=== PATIENT | female | born 1970 | race Caucasian/White ===

== ENCOUNTER → 2020-12-25 15:50 | Outpatient (CLI) | payer OTHER, SELFPAY ==
--- NOTE | 2020-12-25 | EMB_PTH ---
PATIENT: AWA JACOBO LOC: [facility] U#:[id number] AGE/SX: 54/F ROOM: RE12/25/[address]: Dr. Kobe Archibald MD : 1970 BED: DIS: SPEC #: [id number] RECD: 12/25/20 15:00 STATUS: RAMAKRISHNA CHELSIE #: [id number] ALICIA: 12/25/20 00:[address]: Kobe Archibald DEPT: SURGICAL PATHOLOGY RECD BY: Roman Hernandez Tissues: Endometrium, NOS Procedures: Surgery Specimen Level IV HEADER OPERATION: Endometrial biopsy PRE-OP DIAGNOSIS: Thickened endometrial lining R93.8 TISSUE SUBMITTED: Endometrial biopsy MICROSCOPIC DIAGNOSIS Endometrium, biopsy: Transitional endometrium with minimal disorder and focal glandular breakdown. AM:guadalupe 12/27/2020 MICROSCOPIC DESCRIPTION Slides are reviewed. GROSS DESCRIPTION Received in fixative is one container labeled with the patient's name and designated EMB. The specimen consists of multiple fragments of hemorrhagic soft tissue that in aggregate measure 1.5 x 1 x 0.2 cm. The specimen is totally submitted in one cassette. / SJ:rg 12/26/20 TC:5 CPT: 66159
[2020-12-31 11:11] LABS: HPV Reflexed? NOT INDICATED
== END ==
PROVIDERS: Visit Provider Obstetrics & Gynecology
DX: Z12.4 Encounter for screening for malignant neoplasm of cervix (principal); D25.9 Leiomyoma of uterus, unspecified; R93.89 Abnormal findings on diagnostic imaging of other specified body structures
CPT/HCPCS: 88175; 88305; G0145

== ENCOUNTER 2022-05-22 14:10 | Outpatient (CLI) | payer OTHER, SELFPAY ==
[2022-05-22 14:27] LABS: Hematocrit 38.5 % (37-47); Hemoglobin 13.8 g/dL (12.0-15.0); Mean Corp Hgb Conc 35.8 g/dL (32-36); Mean Corpuscular Volume 97.7 fL (81-99); Mean Platelet Vol. 7.9 fl (6.2-12.0); Platelet Count 331 K/mm3 (150-450); RBC Distribution Width CV 14.1 % (11.6-14.6); RBC Distribution Width SD 50.1 fl (35.1-43.9); Red Blood Count 3.94 M/mm3 (4.2-5.4); White Blood Count 9.7 K/mm3 (4.4-11.0)
[2022-05-22 14:51] LABS: Hemoglobin A1c 5.7 % (3.8-5.6)
[2022-05-22 15:01] LABS: Vitamin D,25 Hydroxy 10.3 ng/mL
[2022-05-22 15:04] LABS: T4 Free Direct 0.63 ng/dL (0.76-1.46); Thyroid Stim Hormone (TSH) 5.72 uIU/mL (0.358-3.74)
== END 2022-05-22 23:59 | disposition home or self-care (01) ==
LOC: WOBLAB 14:11
PROVIDERS: Visit Provider Student in an Organized Health Care Education/Training Program
DX: Z01.419 Encounter for gynecological examination (general) (routine) without abnormal findings (principal)
CPT/HCPCS: 36415; 82306; 83036; 84439; 84443; 85027